=== PATIENT | male | born 1970 | race Caucasian/White ===

== ENCOUNTER → 2024-06-19 11:46 | Outpatient (REF) | payer OTHER, SELFPAY | LOC: RAD 11:46 | PROVIDERS: FAMILY PHYSICIAN Family Medicine | DX: Z89.621 Acquired absence of right hip joint (principal) | CPT/HCPCS: 73502; 73552 ==

== ENCOUNTER → 2024-07-03 11:44 | Outpatient (REF) | payer OTHER, MEDICARE, SELFPAY | LOC: RAD 11:44 | PROVIDERS: ATTENDING PHYSICIAN Orthopaedic Surgery Adult Reconstructive Orthopaedic Surgery; FAMILY PHYSICIAN Family Medicine | DX: M16.7 Other unilateral secondary osteoarthritis of hip (principal) | CPT/HCPCS: 72170 ==

== ENCOUNTER → 2025-04-21 12:07 | Outpatient (REF) | payer OTHER, SELFPAY | LOC: REG 12:07 | PROVIDERS: ATTENDING PHYSICIAN Physician Assistant | DX: R00.1 Bradycardia, unspecified (principal); J44.1 Chronic obstructive pulmonary disease with (acute) exacerbation; R06.02 Shortness of breath | CPT/HCPCS: 36415; 71046; 93005 ==